=== PATIENT | male | born 1990 | race African-American/Black ===

== ENCOUNTER 2016-12-29 11:49 | Emergency (ER) | payer MEDICAID ==
[~2016-12-29] VITALS: Ht 180.3 cm; Wt 127.0 kg
[2016-12-29 13:20] VITALS: BP 128/74
[2016-12-29] MEDS ORDERED: KETOROLAC TROMETH 60MG/2ML VIAL IM ONE (14:00)
[2016-12-29] MEDS ORDERED: HYDROcodone-ACET 10/325MG TAB PO ONE (14:15)
== END 2016-12-29 14:35 | disposition home or self-care (01) ==
LOC: ER 11:49
DX: S51.002A Unspecified open wound of left elbow, initial encounter (principal); W34.00XA Accidental discharge from unspecified firearms or gun, initial encounter; Y93.89 Activity, other specified; Y99.8 Other external cause status; Y92.89 Other specified places as the place of occurrence of the external cause
CPT/HCPCS: 29105; 96372; 99283; J1885

== ENCOUNTER 2017-01-03 18:29 | Emergency (ER) | payer MEDICAID ==
[~2017-01-03] VITALS: Ht 180.3 cm; Wt 127.0 kg
[2017-01-03 18:33] VITALS: BP 158/95
== END 2017-01-03 21:00 | disposition home or self-care (01) ==
LOC: ER 18:29
DX: M25.522 Pain in left elbow (principal); Z48.01 Encounter for change or removal of surgical wound dressing
CPT/HCPCS: 29125